=== PATIENT | male | born 1940 | race Caucasian/White ===

== ENCOUNTER → 2018-06-03 | Outpatient (CLI) | payer MEDICARE, MEDICAID | LOC: M PLARAD 10:24 | DX: I31.3 Pericardial effusion (noninflammatory) (principal); K44.9 Diaphragmatic hernia without obstruction or gangrene; J44.9 Chronic obstructive pulmonary disease, unspecified; R91.8 Other nonspecific abnormal finding of lung field | CPT/HCPCS: 78815 ==

== ENCOUNTER → 2019-01-16 | Outpatient (CLI) | payer MEDICARE, MEDICAID ==
--- NOTE | 2019-01-16 16:20 | REP ---
Cookie swallow The procedure was performed by JOE Winters, under the direct supervision of Dr. Dick. The procedure was performed with Marilyn Lubin from speech pathology present. 5 ml aliquots of thin, pudding, mixed fruit, soft food, and cookie consistency barium was administered. No obvious penetration or aspiration was appreciated. The detailed report of this examination will be provided by speech pathology. 1 minute of fluoroscopy time was utilized for this procedure. Reviewed by JOE Maki 01/16/2019 01:54 P Electronically Signed by Will Dick MD 01/16/2019 04:12 P
== END ==
LOC: M ST 12:05
PROVIDERS: ATTEND Physician Assistant
DX: I63.9 Cerebral infarction, unspecified (principal)